=== PATIENT | male | born 1965 | race Caucasian/White ===

== ENCOUNTER 2016-10-07 12:22 | Emergency (ER) | payer MEDICARE, MEDICAID ==
[~2016-10-07] VITALS: Ht 177.8 cm; Wt 88.6 kg
[~2016-10-07 12:22] MED LIST: ABILIFY30 MG PO; AMBIEN 10MG10 MG PO; BACITRACIN TOPIC1 TU TOP; BENAZEPRIL; CLEOCIN HC150 MG/CAP PO; CLEOCIN HCL300 MG PO; COGENTIN 1MG1 MG/TAB PO; DEPAKOTE ER 50500 MG PO; DEPAKOTE500 M1 PO; GEODON80 MG PO; KLONOPIN 1MG1 MG PO; LANTUS; LANTUS100 U/ML SC; MACARDIS; METFORMIN HCL500 M1 PO; MICARDIS20 MG; MOTRIN 800800 MG/TAB PO; NORCO 325 MG-51 TAB PO; NORVASC 5MG5 MG/TAB PO; NOVLOG SQ; NOVOLOG 100U100 U/M1 SQ; NOVOLOG100 U/ML IV; PERCOCET 325 MG1 TA2 PO; PRAVACHOL 40MG40 MG PO; REMERON SOLTAB30 MG PO; RISPERDAL2 MG PO; ULTRAM 50MG TAB50 MG PO; VICODIN 5/5001 UDTAB PO; ZOFRAN ODT4 MG PO; [UNRECOGNIZED DRUG - OTHER]
[2016-10-07 12:29] VITALS: TEMP 98.2
[2016-10-07] MEDS ORDERED: LANTUS100 U/ML SQ (12:57)
[2016-10-07 13:30] LABS: ADJUSTED CALCIUM 8.6 mg/dL (8.4-10.2); BILIRUBIN,TOTAL 0.6 mg/dL (0.0-1.0); CALCIUM 8.6 mg/dL (8.4-10.2); CREATININE, serum 0.65 mg/dL (0.66-1.25); POTASSIUM 4.1 mmol/L (3.4-5.0); TOTAL PROTEIN 7.3 gm/dL (6.4-8.2)
[2016-10-07 13:39] LABS: BASO % 0.5 % (0.0-2.0); EOS # 0.1 (0.0-0.7); EOS % 2.3 % (0-4.0); GRAN # 2.6 (1.4-6.5); GRAN % 45.9 % (42.2-75.2); HEMATOCRIT 41.8 % (42.0-52.0); HEMOGLOBIN 14.1 g/dl (13.5-18.0); LYMPH # 1.9 (1.2-3.4); LYMPH % 34.2 % (20.0-51.0); MEAN CELL VOLUME 88 fl (80.0-100.0); MEAN CORPUSCULAR HEMOGLOBIN 30 pg (27.0-31.0); MEAN CORPUSCULAR HGB CONC 34 g/dl (33.0-37.0); MEAN PLATELET VOLUME 10.6 fl (7.4-10.4); MONO % 16.9 % (1.7-9.3); PLATELET COUNT 232 K/mm3 (130-400); RED BLOOD COUNT 4.76 M/mm3 (4.20-5.60); REDCELL DISTRIBUTION WIDTH-CV 13.4 % (11.5-14.5); WHITE BLOOD COUNT 5.7 K/mm3 (4.8-10.8)
[2016-10-07 14:02] LABS: PH 5 (5-8); SQUAMOUS EPITHELIAL None Seen /hpf; URINE APPEARANCE Clear; URINE BACTERIA None Seen /hpf; URINE BILIRUBIN Negative (NEGATIVE); URINE BLOOD Negative (NEGATIVE); URINE COLOR Yellow; URINE GLUCOSE Negative (NEGATIVE); URINE KETONE Negative (NEGATIVE); URINE RBC None Seen /hpf; URINE UROBILINOGEN Negative (NEGATIVE); URINE WBC 0-2 /hpf
[2016-10-07] MEDS ORDERED: NORCO 325 MG-51 TAB PO (15:15)
[2016-10-07 16:13] VITALS: BP 130/78; PULSE 60
== END 2016-10-07 16:14 | disposition home or self-care (01) ==
LOC: COL.ER 12:22
PROVIDERS: Emergency Medicine
DX: S22.31XA Fracture of one rib, right side, initial encounter for closed fracture (principal); E11.9 Type 2 diabetes mellitus without complications; I10 Essential (primary) hypertension; F17.210 Nicotine dependence, cigarettes, uncomplicated; G40.909 Epilepsy, unspecified, not intractable, without status epilepticus; X50.1XXA Overexertion from prolonged static or awkward postures, initial encounter
CPT/HCPCS: A9284; J1170; J2405; J7030; Q9967

== ENCOUNTER 2017-07-26 20:19 | Emergency (ER) | payer MEDICARE, MEDICAID ==
[~2017-07-26] VITALS: Ht 177.8 cm; Wt 80.9 kg
[~2017-07-26 20:19] MED LIST changes: +LANTUS100 U/ML SQ
[2017-07-26 20:34] VITALS: BP 137/80; TEMP 98.4
[2017-07-26] MEDS ORDERED: LEVEMIR100 U/ML SQ (21:10)
[2017-07-26] MEDS ORDERED: FLEXERIL 1010 MG/TAB PO (22:12)
[2017-07-26] MEDS ORDERED: NAPROXEN 3375 MG/TAB PO (22:12)
[2017-07-26] MEDS ORDERED: NORCO 325 MG-51 TAB PO (22:12)
[2017-07-26 22:20] VITALS: PULSE 76
== END 2017-07-26 22:21 | disposition home or self-care (01) ==
LOC: COL.ER 20:19
DX: S16.1XXA Strain of muscle, fascia and tendon at neck level, initial encounter (principal); G89.29 Other chronic pain; M54.9 Dorsalgia, unspecified; K08.89 Other specified disorders of teeth and supporting structures; I10 Essential (primary) hypertension; E11.40 Type 2 diabetes mellitus with diabetic neuropathy, unspecified; E78.5 Hyperlipidemia, unspecified; F20.9 Schizophrenia, unspecified; F31.9 Bipolar disorder, unspecified; Z79.4 Long term (current) use of insulin; X58.XXXA Exposure to other specified factors, initial encounter
CPT/HCPCS: J1885; J2360

== ENCOUNTER 2018-03-05 10:05 | Emergency (ER) | payer MEDICARE, MEDICAID ==
[~2018-03-05] VITALS: Ht 177.8 cm; Wt 76.3 kg
[~2018-03-05 10:05] MED LIST changes: +FLEXERIL 1010 MG/TAB PO; +LEVEMIR100 U/ML SQ; +NAPROXEN 3375 MG/TAB PO
[2018-03-05 10:21] VITALS: BP 139/88; PULSE 79; TEMP 98.1
[2018-03-05 11:17] LABS: BASO # 0.1 (0.0-0.2); BASO % 0.7 % (0.0-2.0); EOS # 0.1 (0.0-0.7); EOS % 1.1 % (0-4.0); GRAN # 5.8 (1.4-6.5); HEMATOCRIT 44.2 % (42.0-52.0); HEMOGLOBIN 14.6 g/dl (13.5-18.0); LYMPH # 2.8 (1.2-3.4); LYMPH % 29.3 % (20.0-51.0); MEAN CELL VOLUME 90 fl (80.0-100.0); MEAN CORPUSCULAR HEMOGLOBIN 30 pg (27.0-31.0); MEAN CORPUSCULAR HGB CONC 33 g/dl (33.0-37.0); MEAN PLATELET VOLUME 9.9 fl (7.4-10.4); MONO # 0.7 (0.1-0.6); MONO % 7.7 % (1.7-9.3); PLATELET COUNT 275 K/mm3 (130-400); RED BLOOD COUNT 4.94 M/mm3 (4.20-5.60); REDCELL DISTRIBUTION WIDTH-CV 13.7 % (11.5-14.5)
[2018-03-05 13:09] LABS: ALBUMIN 4.4 gm/dL (3.5-5.0); BILIRUBIN,TOTAL 0.7 mg/dL (0.0-1.0); CALCIUM 9.6 mg/dL (8.4-10.2); CREATININE, serum 0.73 mg/dL (0.66-1.25); TOTAL PROTEIN 7.6 gm/dL (6.4-8.2)
== END 2018-03-05 15:17 | disposition home or self-care (01) ==
LOC: COL.ER 10:05
PROVIDERS: Nurse Practitioner Primary Care
DX: F20.0 Paranoid schizophrenia (principal); R53.83 Other fatigue; R53.81 Other malaise; R11.0 Nausea; E11.9 Type 2 diabetes mellitus without complications; I10 Essential (primary) hypertension; E78.5 Hyperlipidemia, unspecified; F31.9 Bipolar disorder, unspecified; F17.210 Nicotine dependence, cigarettes, uncomplicated; Z98.890 Other specified postprocedural states; Z79.4 Long term (current) use of insulin
CPT/HCPCS: J2405

== ENCOUNTER 2018-03-07 14:36 | Emergency (ER) | payer MEDICARE, MEDICAID ==
[~2018-03-07] VITALS: Ht 177.8 cm; Wt 80.0 kg
[2018-03-07 14:42] VITALS: BP 140/86; TEMP 99.1
[2018-03-07] MEDS ORDERED: DEPAKOTE ER 50500 MG PO ×2 (15:03→15:23)
[2018-03-07] MEDS ORDERED: RISPERDAL2 MG PO ×2 (15:03→15:23)
[2018-03-07] MEDS ORDERED: REMERON30 MG PO (15:03)
[2018-03-07] MEDS ORDERED: REMERON SOLTAB30 MG PO (15:23)
[2018-03-07 15:30] VITALS: PULSE 75
== END 2018-03-07 15:30 | disposition home or self-care (01) ==
LOC: COL.ER 14:36
DX: F31.9 Bipolar disorder, unspecified (principal); F20.9 Schizophrenia, unspecified; R56.9 Unspecified convulsions; F17.210 Nicotine dependence, cigarettes, uncomplicated

== ENCOUNTER 2018-03-28 11:47 | Emergency (ER) | payer MEDICARE, MEDICAID ==
[~2018-03-28] VITALS: Ht 177.8 cm; Wt 86.4 kg
[~2018-03-28 11:47] MED LIST changes: +REMERON30 MG PO
[2018-03-28 12:19] LABS: BASO % 0.4 % (0.0-2.0); EOS # 0.1 (0.0-0.7); EOS % 1.4 % (0-4.0); GRAN # 6.4 (1.4-6.5); GRAN % 65.9 % (42.2-75.2); HEMATOCRIT 38.6 % (42.0-52.0); HEMOGLOBIN 12.8 g/dl (13.5-18.0); LYMPH # 2.2 (1.2-3.4); LYMPH % 23.1 % (20.0-51.0); MEAN CELL VOLUME 89 fl (80.0-100.0); MEAN CORPUSCULAR HEMOGLOBIN 30 pg (27.0-31.0); MEAN CORPUSCULAR HGB CONC 33 g/dl (33.0-37.0); MEAN PLATELET VOLUME 10.5 fl (7.4-10.4); MONO # 0.9 (0.1-0.6); MONO % 8.9 % (1.7-9.3); PLATELET COUNT 276 K/mm3 (130-400); RED BLOOD COUNT 4.34 M/mm3 (4.20-5.60); REDCELL DISTRIBUTION WIDTH-CV 13.4 % (11.5-14.5)
[2018-03-28 12:24] LABS: COLLECTION METHOD CLEAN CATCH
[2018-03-28 12:31] LABS: ALANINE AMINOTRANSFERASE 48 U/L (21-72); ALBUMIN 3.9 gm/dL (3.5-5.0); ALKALINE PHOSPHATASE 63 U/L (50-136); ANION GAP 8 mmol/L (7-16); AST,SGOT 26 U/L (15-37); BILIRUBIN,TOTAL 0.3 mg/dL (0.0-1.0); BLOOD UREA NITROGEN 14 mg/dL (9-20); CALCIUM 8.6 mg/dL (8.4-10.2); CARBON DIOXIDE 26 mmol/L (22-30); CHLORIDE 104 mmol/L (98-107); CREATININE, serum 0.57 mg/dL (0.66-1.25); GLUCOSE 107 mg/dL (74-106); POTASSIUM 3.9 mmol/L (3.4-5.0); SODIUM 137 mmol/L (137-145)
[2018-03-28 12:31] LABS: MUCOUS Present /lpf; PH 6 (5-8); SQUAMOUS EPITHELIAL None Seen /hpf; URINE APPEARANCE Clear; URINE BACTERIA None Seen /hpf; URINE BILIRUBIN Negative (NEGATIVE); URINE BLOOD Negative (NEGATIVE); URINE COLOR Yellow; URINE GLUCOSE Negative (NEGATIVE); URINE KETONE Negative (NEGATIVE); URINE LEUKOCYTE ESTERASE Negative (NEGATIVE); URINE NITRATE Negative (NEGATIVE); URINE PROTEIN(semi-quant) Negative (NEGATIVE); URINE RBC 0-2 /hpf
[2018-03-28 12:32] LABS: ACETAMINOPHEN < 10 ug/mL (10-30); ALCOHOL(ethanol),MEDICAL < 10 mg/dL; SALICYLATE < 1.0 mg/dL
[2018-03-28 12:39] LABS: TRICYCLIC ANTIDEPRESS URINE NEGATIVE
[2018-03-28 22:07] VITALS: TEMP 97.8
[2018-03-29 00:15] VITALS: BP 118/66; PULSE 66
== END 2018-03-29 00:16 ==
LOC: COL.ER 11:47
PROVIDERS: Nurse Practitioner
DX: R45.851 Suicidal ideations (principal); F20.9 Schizophrenia, unspecified; E11.40 Type 2 diabetes mellitus with diabetic neuropathy, unspecified; I10 Essential (primary) hypertension; F31.9 Bipolar disorder, unspecified; Z88.0 Allergy status to penicillin; F17.210 Nicotine dependence, cigarettes, uncomplicated

== ENCOUNTER 2018-04-27 14:00 | Emergency (ER) | payer MEDICARE, MEDICAID ==
[~2018-04-27] VITALS: Ht 182.9 cm; Wt 97.7 kg
[2018-04-27 14:15] VITALS: TEMP 97.1
[2018-04-27 14:43] LABS: BASO % 0.5 % (0.0-2.0); EOS # 0.1 (0.0-0.7); GRAN # 5.4 (1.4-6.5); GRAN % 69.5 % (42.2-75.2); HEMOGLOBIN 11.8 g/dl (13.5-18.0); LYMPH # 1.5 (1.2-3.4); LYMPH % 19.2 % (20.0-51.0); MEAN CELL VOLUME 89 fl (80.0-100.0); MEAN CORPUSCULAR HEMOGLOBIN 30 pg (27.0-31.0); MEAN CORPUSCULAR HGB CONC 33 g/dl (33.0-37.0); MEAN PLATELET VOLUME 10.4 fl (7.4-10.4); MONO # 0.7 (0.1-0.6); MONO % 9.5 % (1.7-9.3); PLATELET COUNT 175 K/mm3 (130-400); RED BLOOD COUNT 3.97 M/mm3 (4.20-5.60); REDCELL DISTRIBUTION WIDTH-CV 13.6 % (11.5-14.5)
[2018-04-27 14:46] LABS: HEMATOCRIT 35.3 % (42.0-52.0)
[2018-04-27 14:54] LABS: ALANINE AMINOTRANSFERASE 42 U/L (21-72); ALBUMIN 3.6 gm/dL (3.5-5.0); ALKALINE PHOSPHATASE 60 U/L (50-136); ANION GAP 9 mmol/L (7-16); AST,SGOT 27 U/L (15-37); BILIRUBIN,TOTAL 0.6 mg/dL (0.0-1.0); BLOOD UREA NITROGEN 13 mg/dL (9-20); CALCIUM 8.1 mg/dL (8.4-10.2); CARBON DIOXIDE 26 mmol/L (22-30); CHLORIDE 105 mmol/L (98-107); CREATININE, serum 0.65 mg/dL (0.66-1.25); GLUCOSE 92 mg/dL (74-106); LIPASE 28 U/L (23-300); POTASSIUM 3.4 mmol/L (3.4-5.0); SODIUM 139 mmol/L (137-145); TOTAL PROTEIN 6.5 gm/dL (6.4-8.2)
[2018-04-27 15:00] LABS: ACETAMINOPHEN < 10 ug/mL (10-30); ALCOHOL(ethanol),MEDICAL < 10 mg/dL; SALICYLATE < 1.0 mg/dL
[2018-04-27 15:23] LABS: TSH w REFLEX 0.219 uIU/mL (0.465-4.680)
[2018-04-27 19:42] LABS: COLLECTION METHOD CLEAN CATCH
[2018-04-27 19:47] LABS: MUCOUS Present /lpf; PH 5 (5-8); SQUAMOUS EPITHELIAL 0-2 /hpf; URINE APPEARANCE Clear; URINE BACTERIA None Seen /hpf; URINE BILIRUBIN Negative (NEGATIVE); URINE BLOOD Negative (NEGATIVE); URINE COLOR Yellow; URINE GLUCOSE Negative (NEGATIVE); URINE KETONE Negative (NEGATIVE); URINE LEUKOCYTE ESTERASE Negative (NEGATIVE); URINE NITRATE Negative (NEGATIVE); URINE PROTEIN(semi-quant) Negative (NEGATIVE); URINE RBC 0-2 /hpf
[2018-04-27 19:55] LABS: TRICYCLIC ANTIDEPRESS URINE NEGATIVE
[2018-04-27 23:51] VITALS: BP 115/74; PULSE 63
== END 2018-04-28 00:02 | disposition home or self-care (01) ==
LOC: COL.ER 14:00
PROVIDERS: Emergency Medicine
DX: F29 Unspecified psychosis not due to a substance or known physiological condition (principal); F20.9 Schizophrenia, unspecified; F31.9 Bipolar disorder, unspecified; F15.10 Other stimulant abuse, uncomplicated; F12.10 Cannabis abuse, uncomplicated; Z91.14 Patient's other noncompliance with medication regimen
CPT/HCPCS: J1200; J7030

== ENCOUNTER 2018-08-01 13:29 | Emergency (ER) | payer MEDICARE ==
[~2018-08-01] VITALS: Ht 177.8 cm; Wt 72.7 kg
[2018-08-01 13:34] VITALS: BP 122/70
[2018-08-01] MEDS ORDERED: CLEOCIN HCL300 MG PO (14:30)
[2018-08-01] MEDS ORDERED: NORCO 325 MG-51 TAB PO (14:30)
[2018-08-01 14:50] VITALS: PULSE 76; TEMP 98.6
== END 2018-08-01 14:50 | disposition home or self-care (01) ==
LOC: COL.ER 13:29
DX: K08.89 Other specified disorders of teeth and supporting structures (principal); F31.9 Bipolar disorder, unspecified; F20.9 Schizophrenia, unspecified

== ENCOUNTER 2019-02-22 00:38 | Emergency (ER) | payer MEDICARE, MEDICAID ==
[~2019-02-22] VITALS: Ht 177.8 cm; Wt 84.1 kg
[2019-02-22 00:51] VITALS: BP 128/88; TEMP 97
[2019-02-22 02:00] LABS: BASO # 0.1 (0.0-0.2); BASO % 0.5 % (0.0-2.0); EOS % 0.3 % (0-4.0); GRAN # 9.2 (1.4-6.5); GRAN % 73.8 % (42.2-75.2); HEMATOCRIT 40.2 % (42.0-52.0); HEMOGLOBIN 13.6 g/dl (13.5-18.0); LYMPH # 1.7 (1.2-3.4); LYMPH % 13.8 % (20.0-51.0); MEAN CELL VOLUME 87 fl (80.0-100.0); MEAN CORPUSCULAR HEMOGLOBIN 29 pg (27.0-31.0); MEAN CORPUSCULAR HGB CONC 34 g/dl (33.0-37.0); MEAN PLATELET VOLUME 11.1 fl (7.4-10.4); MONO # 1.4 (0.1-0.6); MONO % 11.2 % (1.7-9.3); PLATELET COUNT 228 K/mm3 (130-400); RED BLOOD COUNT 4.65 M/mm3 (4.20-5.60); REDCELL DISTRIBUTION WIDTH-CV 13.9 % (11.5-14.5)
[2019-02-22 03:03] LABS: CALCIUM 9.7 mg/dL (8.4-10.2); CREATININE, serum 1.75 (0.66-1.25)
[2019-02-22] MEDS ORDERED: CLEOCIN HCL300 MG PO (04:59)
[2019-02-22] MEDS ORDERED: LEVAQUIN 750MG750 M1 PO (04:59)
[2019-02-22 05:27] VITALS: PULSE 89
== END 2019-02-22 05:28 | disposition home or self-care (01) ==
LOC: COL.ER 00:38
PROVIDERS: Physician Assistant
DX: K04.7 Periapical abscess without sinus (principal); M79.89 Other specified soft tissue disorders; F17.210 Nicotine dependence, cigarettes, uncomplicated
CPT/HCPCS: J7040; Q9967

== ENCOUNTER 2020-02-15 13:51 | Emergency (ER) | payer MEDICARE, MEDICAID ==
[~2020-02-15] VITALS: Ht 177.8 cm; Wt 90.9 kg
[~2020-02-15 13:51] MED LIST changes: +LEVAQUIN 750MG750 M1 PO
[2020-02-15 14:04] VITALS: TEMP 98.2
[2020-02-15 14:40] LABS: COLLECTION METHOD CLEAN CATCH
[2020-02-15 14:47] LABS: BASO # 0.1 (0.0-0.2); BASO % 0.7 % (0.0-2.0); EOS # 0.1 (0.0-0.7); EOS % 1.6 % (0-4.0); GRAN # 5.2 (1.4-6.5); GRAN % 60.7 % (42.2-75.2); HEMATOCRIT 45.1 % (42.0-52.0); HEMOGLOBIN 14.8 g/dl (13.5-18.0); LYMPH # 2.3 (1.2-3.4); LYMPH % 27.4 % (20.0-51.0); MEAN CELL VOLUME 90 fl (80.0-100.0); MEAN CORPUSCULAR HEMOGLOBIN 29 pg (27.0-31.0); MEAN CORPUSCULAR HGB CONC 33 g/dl (33.0-37.0); MONO # 0.8 (0.1-0.6); MONO % 9.4 % (1.7-9.3); PLATELET COUNT 213 K/mm3 (130-400); RED BLOOD COUNT 5.03 M/mm3 (4.20-5.60); REDCELL DISTRIBUTION WIDTH-CV 13.4 % (11.5-14.5)
[2020-02-15 14:48] LABS: PH 5 (5-8); SQUAMOUS EPITHELIAL None Seen /hpf; URINE APPEARANCE Clear; URINE BACTERIA None Seen /hpf; URINE BILIRUBIN Negative (NEGATIVE); URINE BLOOD Negative (NEGATIVE); URINE COLOR Yellow; URINE GLUCOSE Negative (NEGATIVE); URINE KETONE Negative (NEGATIVE); URINE LEUKOCYTE ESTERASE Negative (NEGATIVE); URINE NITRATE Negative (NEGATIVE); URINE PROTEIN(semi-quant) Negative (NEGATIVE); URINE RBC None Seen /hpf; URINE UROBILINOGEN Negative (NEGATIVE)
[2020-02-15 14:55] LABS: ALBUMIN 4.4 gm/dL (3.5-5.0); BILIRUBIN,TOTAL 0.4 mg/dL (0.0-1.0); CALCIUM 9.7 mg/dL (8.4-10.2); CREATININE, serum 0.71 (0.66-1.25); TOTAL PROTEIN 7.9 gm/dL (6.4-8.2)
[2020-02-15] MEDS ORDERED: ZOFRAN ODT4 MG PO (15:46)
[2020-02-15] MEDS ORDERED: PROTONIX 40MG T40 MG PO (15:46)
[2020-02-15 16:07] VITALS: BP 140/86; PULSE 55
== END 2020-02-15 16:05 | disposition home or self-care (01) ==
LOC: COL.ER 13:51
PROVIDERS: Emergency Medicine
DX: R10.13 Epigastric pain (principal); R11.0 Nausea; I10 Essential (primary) hypertension; F31.9 Bipolar disorder, unspecified; F20.0 Paranoid schizophrenia; R42 Dizziness and giddiness; F17.210 Nicotine dependence, cigarettes, uncomplicated; Z88.2 Allergy status to sulfonamides
CPT/HCPCS: J2405; J7030

== ENCOUNTER 2020-05-27 06:17 | Emergency (ER) | payer MEDICARE, MEDICAID ==
[~2020-05-27] VITALS: Ht 177.8 cm; Wt 84.5 kg
[~2020-05-27 06:17] MED LIST changes: +PROTONIX 40MG T40 MG PO
[2020-05-27 06:20] VITALS: TEMP 96.3
[2020-05-27 07:10] LABS: COLLECTION METHOD CLEAN CATCH
[2020-05-27 07:16] LABS: BASO # 0.1 (0.0-0.2); BASO % 0.8 % (0.0-2.0); EOS # 0.2 (0.0-0.7); EOS % 2.5 % (0-4.0); GRAN # 4.1 (1.4-6.5); GRAN % 56.6 % (42.2-75.2); HEMATOCRIT 39.1 % (42.0-52.0); HEMOGLOBIN 13.3 g/dl (13.5-18.0); LYMPH # 2.1 (1.2-3.4); LYMPH % 28.5 % (20.0-51.0); MEAN CELL VOLUME 88 fl (80.0-100.0); MEAN CORPUSCULAR HEMOGLOBIN 30 pg (27.0-31.0); MEAN CORPUSCULAR HGB CONC 34 g/dl (33.0-37.0); MEAN PLATELET VOLUME 10.7 fl (7.4-10.4); MONO # 0.8 (0.1-0.6); MONO % 11.5 % (1.7-9.3); PLATELET COUNT 245 K/mm3 (130-400); RED BLOOD COUNT 4.44 M/mm3 (4.20-5.60); REDCELL DISTRIBUTION WIDTH-CV 12.7 % (11.5-14.5)
[2020-05-27 07:24] LABS: MUCOUS Present /lpf; PH 6 (5-8); SQUAMOUS EPITHELIAL None Seen /hpf; URINE APPEARANCE Clear; URINE BACTERIA None Seen /hpf; URINE BILIRUBIN Negative (NEGATIVE); URINE BLOOD Negative (NEGATIVE); URINE COLOR Yellow; URINE GLUCOSE Negative (NEGATIVE); URINE KETONE Negative (NEGATIVE); URINE LEUKOCYTE ESTERASE Negative (NEGATIVE); URINE NITRATE Negative (NEGATIVE); URINE PROTEIN(semi-quant) Negative (NEGATIVE); URINE RBC 0-2 /hpf; URINE UROBILINOGEN Negative (NEGATIVE)
[2020-05-27 07:30] LABS: ALANINE AMINOTRANSFERASE 20 U/L (4-49); ALBUMIN 4.2 gm/dL (3.5-5.0); ALKALINE PHOSPHATASE 72 U/L (50-136); ANION GAP 7 mmol/L (7-16); AST,SGOT 24 U/L (15-37); BILIRUBIN,TOTAL 0.4 mg/dL (0.0-1.0); BLOOD UREA NITROGEN 20 mg/dL (9-20); CALCIUM 9.1 mg/dL (8.4-10.2); CARBON DIOXIDE 26 mmol/L (22-30); CHLORIDE 106 mmol/L (98-107); CREATININE, serum 0.89 (0.66-1.25); GLUCOSE 109 mg/dL (74-106); POTASSIUM 3.9 mmol/L (3.4-5.0); SODIUM 139 mmol/L (137-145); TOTAL PROTEIN 7.3 gm/dL (6.4-8.2)
[2020-05-27 07:36] LABS: TRICYCLIC ANTIDEPRESS URINE NEGATIVE
[2020-05-27 07:39] LABS: ERYTHROCYTE SEDIMENTATION RATE 14 mm/hr (0-30)
[2020-05-27 07:40] LABS: C-REACTIVE PROTEIN < 0.5 mg/dL (0.0-0.9)
[2020-05-27] MEDS ORDERED: DOXYCYCLINE 10100 MG PO (08:08)
[2020-05-27 08:39] VITALS: BP 122/73; PULSE 69
== END 2020-05-27 08:39 | disposition home or self-care (01) ==
LOC: COL.ER 06:17
PROVIDERS: Emergency Medicine
DX: F15.90 Other stimulant use, unspecified, uncomplicated (principal); R59.1 Generalized enlarged lymph nodes; I10 Essential (primary) hypertension; F17.210 Nicotine dependence, cigarettes, uncomplicated; Z91.19 Patient's noncompliance with other medical treatment and regimen; Z88.0 Allergy status to penicillin

== ENCOUNTER 2020-12-10 10:05 | Emergency (ER) | payer MEDICARE, MEDICAID ==
[~2020-12-10] VITALS: Ht 177.8 cm; Wt 90.0 kg
[~2020-12-10 10:05] MED LIST changes: +DOXYCYCLINE 10100 MG PO
[2020-12-10 10:12] VITALS: TEMP 97
[2020-12-10] MEDS ORDERED: NEURONTIN100 MG/CAP PO (10:17)
[2020-12-10 10:50] LABS: BASO # 0.1 (0.0-0.2); BASO % 0.7 % (0.0-2.0); EOS # 0.2 (0.0-0.7); GRAN # 5.9 (1.4-6.5); GRAN % 60.4 % (42.2-75.2); HEMOGLOBIN 14.5 g/dl (13.5-18.0); LYMPH # 2.5 (1.2-3.4); LYMPH % 25.4 % (20.0-51.0); MEAN CELL VOLUME 89 fl (80.0-100.0); MEAN CORPUSCULAR HEMOGLOBIN 29 pg (27.0-31.0); MEAN CORPUSCULAR HGB CONC 33 g/dl (33.0-37.0); MEAN PLATELET VOLUME 11.3 fl (7.4-10.4); MONO # 1.1 (0.1-0.6); PLATELET COUNT 204 K/mm3 (130-400); RED BLOOD COUNT 4.95 M/mm3 (4.20-5.60); REDCELL DISTRIBUTION WIDTH-CV 13.2 % (11.5-14.5)
[2020-12-10 10:53] LABS: PROTHROMBIN TIME 11.3 SECONDS (9.7-12.8)
[2020-12-10 10:55] LABS: PARTIAL THROMBOPLASTIN TIME 30.8 SECONDS (26.0-37.0)
[2020-12-10 10:58] LABS: ALANINE AMINOTRANSFERASE 39 U/L (4-49); ALBUMIN 4.2 gm/dL (3.5-5.0); ALKALINE PHOSPHATASE 75 U/L (50-136); ANION GAP 10 mmol/L (7-16); AST,SGOT 30 U/L (15-37); BILIRUBIN,TOTAL 0.4 mg/dL (0.0-1.0); BLOOD UREA NITROGEN 17 mg/dL (9-20); CALCIUM 9.2 mg/dL (8.4-10.2); CARBON DIOXIDE 23 mmol/L (22-30); CHLORIDE 101 mmol/L (98-107); CREATININE, serum 0.71 (0.66-1.25); GLUCOSE 243 mg/dL (74-106); POTASSIUM 4.1 mmol/L (3.4-5.0); SODIUM 134 mmol/L (137-145); TOTAL PROTEIN 7.7 gm/dL (6.4-8.2)
[2020-12-10 11:10] LABS: TROPONIN-I < 0.012 ng/mL (0.000-0.035)
[2020-12-10 12:08] LABS: COLLECTION METHOD CLEAN CATCH
[2020-12-10 12:13] LABS: PH 6 (5-8); SQUAMOUS EPITHELIAL None Seen /hpf; URINE APPEARANCE Clear; URINE BACTERIA None Seen /hpf; URINE BILIRUBIN Negative (NEGATIVE); URINE BLOOD Negative (NEGATIVE); URINE COLOR Straw; URINE GLUCOSE 1+ (NEGATIVE); URINE KETONE Negative (NEGATIVE); URINE LEUKOCYTE ESTERASE Negative (NEGATIVE); URINE NITRATE Negative (NEGATIVE); URINE PROTEIN(semi-quant) Negative (NEGATIVE); URINE RBC 0-2 /hpf; URINE UROBILINOGEN Negative (NEGATIVE)
[2020-12-10 13:49] VITALS: BP 153/99; PULSE 58
== END 2020-12-10 14:03 | disposition home or self-care (01) ==
LOC: COL.ER 10:05
PROVIDERS: Family Medicine
DX: R07.89 Other chest pain (principal); I10 Essential (primary) hypertension; E10.9 Type 1 diabetes mellitus without complications; G89.29 Other chronic pain; M54.9 Dorsalgia, unspecified; F17.210 Nicotine dependence, cigarettes, uncomplicated; Z88.0 Allergy status to penicillin; Z79.899 Other long term (current) drug therapy
CPT/HCPCS: J1885; J7030

== ENCOUNTER 2022-12-08 06:10 | Day surgery (SDC) | payer MEDICARE, MEDICAID ==
[~2022-12-08] VITALS: Ht 180.3 cm; Wt 81.5 kg
[~2022-12-08 06:10] MED LIST changes: +NEURONTIN100 MG/CAP PO
[2022-12-08] MEDS ORDERED: LIDODERM 5% PATC1 EA TP (06:52)
[2022-12-08] MEDS ORDERED: GLUCOPHAGE500 MG/TAB PO (06:52)
[2022-12-08] MEDS ORDERED: PRILOSEC 20MG20 MG PO (06:53)
[2022-12-08 07:30] VITALS: BP 158/86; PULSE 80; TEMP 98.2
[2022-12-08] MEDS ORDERED: NORCO 325 MG-51 TAB PO ×2 (10:04→10:10)
[2022-12-08 10:40] VITALS: BP 148/87; PULSE 72; TEMP 98.2
[2022-12-08 10:55] VITALS: BP 142/82; PULSE 76
[2022-12-08 11:10] VITALS: BP 130/85; PULSE 76
--- NOTE | 2022-12-08 11:20 | NUR ---
1040 RETURNS TO ROOM 8 PER CART. AWAKE, ALERT. RESP UNLABORED. EXPRESSES URINARY URGENCY. STAND TRANSFERS FROM CART TO WHEELCHAIR. ASSISTED TO BATHROOM, STANDS, VOIDS WITHOUT DIFFICULTY. 1043 RETURNS TO ROOM 8 PER WHEELCHAIR. TRANSFERS TO CART WITH MINIMAL ASSISTANCE. TOLERATES ACTIVITY WELL. REPORTS MILD DISCOMFORT. ABD SOFT. RIGHT LOWER ABD DRESSING CLEAN DRY AND INTACT. 1055 TOLERATES PO JUICE WITHOUT NAUSEA. 1100 DISCHARGE INSTRUCTIONS REVIEWED. PATIENT INFORMED NOT TO TAKE ANY NSAIDS PRIOR TO 4:00 PM TODAY. VERBALIZES UNDERSTANDING. COPY OF INSTRUCTIONS PROVIDED IN DISCHARGE FOLDER. 1110 SITS ON EDGE OF CART. DRESSES SELF
== END 2022-12-08 11:20 | disposition home or self-care (01) ==
LOC: SDCO 06:10
DX: K40.30 Unilateral inguinal hernia, with obstruction, without gangrene, not specified as recurrent (principal); F17.210 Nicotine dependence, cigarettes, uncomplicated; E11.9 Type 2 diabetes mellitus without complications; Z79.84 Long term (current) use of oral hypoglycemic drugs
CPT/HCPCS: C1781; J0330; J0690; J1885; J2405; J2704; J3010; J7120

== ENCOUNTER 2023-08-20 15:30 | Outpatient (RCR) | payer MEDICARE, MEDICAID ==
[~2023-08-20 15:30] MED LIST changes: +GLUCOPHAGE500 MG/TAB PO; +LIDODERM 5% PATC1 EA TP; +PRILOSEC 20MG20 MG PO
== END 2023-08-22 | disposition home or self-care (01) ==
LOC: MKS.ESL.PT
DX: M54.41 Lumbago with sciatica, right side (principal); M54.42 Lumbago with sciatica, left side; M79.604 Pain in right leg; M79.605 Pain in left leg

== ENCOUNTER 2023-08-24 08:09 | Outpatient (RCR) | payer MEDICARE, MEDICAID | END 2023-09-22 | LOC: MKS.ESL.PT | DX: M54.41 Lumbago with sciatica, right side (principal); M54.42 Lumbago with sciatica, left side; M79.604 Pain in right leg; M79.605 Pain in left leg; G89.29 Other chronic pain ==